=== PATIENT | female | born 1945 | race Caucasian/White ===

== ENCOUNTER → 2017-09-24 14:45 | Outpatient (POV) | payer OTHER, SELFPAY | PROVIDERS: Visit Provider Dermatology | DX: Z00.00 Encounter for general adult medical examination without abnormal findings (principal) ==

== ENCOUNTER → 2020-12-21 10:23 | Outpatient (CLI) | payer MEDICARE, SELFPAY ==
--- NOTE | 2020-12-21 10:26 | XR_ITS ---
PROCEDURE: XR DEXA AXIAL SKELETON CLINICAL HISTORY: OSTEOPOROSIS SCREENING COMPARISON: No exams were available for comparison FINDINGS: The right hip BMD is 0.690 grams/centimeter square with a T-score of -2.1. The left hip BMD is 0.653 grams/centimeter square with a T-score of -2.4. The lumbar spine BMD is 0.741 grams/centimeter square with a T-score of -2.8. IMPRESSION: This patient is considered osteoporotic according to the World Health Organization criteria. Fracture risk is high. Treatment is advised. Based on these results a follow-up exam is recommended in 2 year. Dictated by: Sarah Sr 12/21/2020 16:54 Sarah Sr in [place] 12/21/2020 16:54
== END ==
PROVIDERS: PCP Family Medicine; Visit Provider Family Medicine
DX: Z13.820 Encounter for screening for osteoporosis (principal)
CPT/HCPCS: 77080

== ENCOUNTER 2021-02-04 10:15 | Outpatient (CLI) | payer MEDICARE, SELFPAY ==
[2021-02-04 10:45] VITALS: BP 122/70; PULSE 70; RESP 20; TEMP 36.8; O2SAT 95
== END 2021-02-04 10:50 | disposition home or self-care (01) ==
LOC: INF 10:17
PROVIDERS: Visit Provider Family Medicine
DX: M81.0 Age-related osteoporosis without current pathological fracture (principal)
CPT/HCPCS: 96372; J0897

== ENCOUNTER 2021-08-08 10:35 | Outpatient (CLI) | payer MEDICARE, SELFPAY ==
[2021-08-08 10:48] VITALS: BP 132/67; PULSE 65; RESP 16; TEMP 36.4; O2SAT 98
== END 2021-08-08 10:55 | disposition home or self-care (01) ==
LOC: INF 10:37
PROVIDERS: PCP Family Medicine; Visit Provider Family Medicine
DX: M81.0 Age-related osteoporosis without current pathological fracture (principal)
CPT/HCPCS: 96372; J0897

== ENCOUNTER → 2022-01-14 10:00 | Outpatient (POV) | payer MEDICARE, SELFPAY | PROVIDERS: Visit Provider Dermatology | DX: Z00.00 Encounter for general adult medical examination without abnormal findings (principal) ==

== ENCOUNTER 2022-02-11 10:16 | Outpatient (CLI) | payer MEDICARE, SELFPAY ==
[2022-02-11 10:28] VITALS: BP 123/73; PULSE 62; RESP 18; TEMP 36.4; O2SAT 99
== END 2022-02-11 10:45 | disposition home or self-care (01) ==
LOC: INF 10:17
PROVIDERS: PCP Family Medicine; Visit Provider Family Medicine
DX: M81.0 Age-related osteoporosis without current pathological fracture (principal); E78.2 Mixed hyperlipidemia
CPT/HCPCS: 96372; J0897

== ENCOUNTER 2022-08-19 10:18 | Outpatient (CLI) | payer MEDICARE, SELFPAY ==
[2022-08-19 10:39] VITALS: BP 133/71; PULSE 68; RESP 18; O2SAT 97
== END 2022-08-19 10:39 | disposition home or self-care (01) ==
LOC: INF 10:20
PROVIDERS: PCP Family Medicine; Visit Provider Family Medicine
DX: M81.0 Age-related osteoporosis without current pathological fracture (principal); E78.2 Mixed hyperlipidemia
CPT/HCPCS: 96372; J0897

== ENCOUNTER 2023-02-17 10:29 | Outpatient (CLI) | payer MEDICARE, SELFPAY ==
[2023-02-17 10:50] VITALS: BP 131/74; PULSE 67; RESP 16; TEMP 36.4; O2SAT 97
== END 2023-02-17 11:05 | disposition home or self-care (01) ==
PROVIDERS: PCP Family Medicine; Visit Provider Family Medicine
DX: M81.0 Age-related osteoporosis without current pathological fracture (principal); E78.2 Mixed hyperlipidemia
CPT/HCPCS: 96372; J0897

== ENCOUNTER 2023-08-21 10:08 | Outpatient (CLI) | payer MEDICARE, SELFPAY ==
[2023-08-21 10:20] VITALS: BP 135/75; PULSE 84; RESP 18; TEMP 36.8; O2SAT 97
== END 2023-08-21 10:24 | disposition home or self-care (01) ==
LOC: INF 10:09
PROVIDERS: PCP Family Medicine; Visit Provider Family Medicine
DX: M81.0 Age-related osteoporosis without current pathological fracture (principal); E78.2 Mixed hyperlipidemia
CPT/HCPCS: 96372; J0897

== ENCOUNTER 2024-02-22 10:14 | Outpatient (CLI) | payer MEDICARE, SELFPAY ==
[2024-02-22 10:24] VITALS: BP 144/68; PULSE 72; RESP 18; TEMP 36.8; O2SAT 98
[2024-02-22] MEDS: DENOSUMAB 60 MG/ML SYRINGE SQ (10:27)
== END 2024-02-22 10:27 | disposition home or self-care (01) ==
LOC: INF 10:15
PROVIDERS: PCP Family Medicine; Visit Provider Family Medicine
DX: M81.0 Age-related osteoporosis without current pathological fracture (principal); Z79.620 Long term (current) use of immunosuppressive biologic
CPT/HCPCS: 96372; 96374; J0897

== ENCOUNTER 2024-02-29 09:01 | Outpatient (CLI) | payer MEDICARE, SELFPAY ==
--- NOTE | 2024-02-29 09:06 | XR_ITS ---
FINAL REPORT CLINICAL HISTORY: OSTEOPOROSIS COMPARISON: None FINDINGS: Using L1-4, the bone mineral density of the spine is 0.844 g/cm2, corresponding to T-score of -1.8 which is consistent with low bone density. Using the left hip, the bone mineral density of the femoral neck is 0.715 g/cm2, corresponding to a T-score of -1.9 which is consistent with low bone density. Using the right hip, the bone mineral density of the femoral neck is 0.677 g/cm2, corresponding to a T-score of -1.5 which is consistent with low bone density. FRAX not reported because the patient is being treated for osteoporosis. NOTE: T-score: Standard deviation compared with peak bone mass of young adult mean. *Following the recommendations of the International Society of Bone densitometry, classification of hip BMD is based on the lower of two T-scores; total hip or femoral neck. IMPRESSION: Diminished bone mineral density consistent with low bone density. Reviewed, Interpreted and Dictated by Ltuher Martinez III, MD Transcribed by Lore Granados Authenticated and [facility] [place] [place]
== END 2024-02-29 23:59 | disposition home or self-care (01) ==
LOC: RAD 09:01
PROVIDERS: PCP Family Medicine; Visit Provider Family Medicine
DX: M81.0 Age-related osteoporosis without current pathological fracture (principal)
CPT/HCPCS: 77080

== ENCOUNTER 2024-08-23 08:27 | Outpatient (CLI) | payer MEDICARE, SELFPAY ==
[2024-08-23 08:37] VITALS: BP 116/62; PULSE 82; RESP 18; TEMP 36.6; O2SAT 96; BMI 24.2
[2024-08-23] MEDS: DENOSUMAB 60 MG/ML SYRINGE SUBCUT (08:37)
[2024-08-23 08:45] VITALS: BP 116/62; PULSE 82; RESP 18; TEMP 36.6; O2SAT 96
== END 2024-08-23 08:45 | disposition home or self-care (01) ==
LOC: INF 08:27
PROVIDERS: PCP Family Medicine; Visit Provider Family Medicine
DX: M81.0 Age-related osteoporosis without current pathological fracture (principal)
CPT/HCPCS: 96372; J0897

== ENCOUNTER 2024-12-22 09:03 | Day surgery (SDC) | payer MEDICARE, SELFPAY ==
--- NOTE | 2024-12-20 09:16 | SUR.PREOP ---
0915:VAL on with call back number.
[2024-12-21 08:42] VITALS: BMI 24.6
[2024-12-22 09:25] VITALS: BP 182/74; PULSE 89; RESP 16; TEMP 36.6; O2SAT 96
--- NOTE | 2024-12-22 09:56 | P.PNANES_ITS ---
[facility] Disclaimer: The information contained in this section may have been updated after the patient was seen, as this information can be updated by other users. Medical History Closed left arm fracture Closed left ankle fracture Surgical History Hx laparoscopic cholecystectomy H/O total hysterectomy Family History Other Family history of hyperlipidemia Family history of hypertension Social History (Updated 12/21/24 @ 08:40 by Jeana Donovan RN) Smoking Status: Never smoker alcohol intake: never substance use type: denies use current occupational status: retired Travel in the last 8 weeks: None household members: none housing: house caffeine: Yes [facility] Anesthesia Checklist Patient Identification Patient Identification: Verbal (Name & ) Structural Data Admitted From: Home Planned Operative Procedure/s: colonoscopy Consent for Planned Operative Procedure(s) Verified: Yes NPO Status Verified Time NPO: 00:00 Airway Assessment Mallampati Score:: Class II C-Spine Mobility Assessed: Yes TMJ Mobility Assessed: Yes Dentition: Good Dentition Neurological Assessment Level of Consciousness: Awake, Alert and Appropriate Anesthesia Plan Anesthesia Risk discussed: Yes Anesthesia Plan: Verified ASA Class: II Anesthesia Type: MAC
--- NOTE | 2024-12-22 10:56 | P.HP_ITS ---
History of Present Illness *Admission Date: 12/22/24 *Reason for visit:: Hemoccult positive/soreness in lower abdomen *History of present illness: Mrs. Higginbotham is a 79-year-old female who is here for diagnostic colonoscopy. She has had some soreness in the lower abdomen and was recently found to be Hemoccult positive. Her last colonoscopy was more than 20 years ago.. The examination is deemed medically necessary for diagnostic colonoscopy. The patient has been seen, interviewed and examined prior to the procedure by both myself and the anesthesia provider. [facility] Disclaimer: The information contained in this section may have been updated after the patient was seen, as this information can be updated by other users. Medical History (Updated 12/22/24 @ 11:09 by Obed Childers II, MD) Closed left arm fracture Closed left ankle fracture Surgical History Hx laparoscopic cholecystectomy H/O total hysterectomy Family History Other Family history of hyperlipidemia Family history of hypertension Social History (Updated 12/22/24 @ 09:57 by Manoj Flores CRNA) Smoking Status: Never smoker alcohol intake: never substance use type: denies use current occupational status: retired Travel in the last 8 weeks: None household members: none housing: house caffeine: Yes Have you lived/traveled outside [place] in past 30 days?: No Contact w/someone who lives/traveled outside US past 30 days?: No Exposure to someone with infectious disease in past 14 days?: No Do you have a fever (greater than 100.4 F or 38 C)?: No Have you tested positive for COVID-19: No Exposed to someone with COVID-19 in past 14 days?: No Do you have a sore throat?: No Do you have a cough?: No Do you have any weakness?: No Are you experiencing any nausea/vomitting?: No Do you have any diarrhea?: No Are you experiencing any unusual bleeding?: No Do you have any muscle aches/pain?: No Do you have any abdominal pain?: No Are you experiencing loss of taste or smell?: No Review of Systems Review of Systems Review of systems (narrative): Negative *Cardiovascular Comments: Negative *Gastrointestinal Comments: Negative *Genitourinary Comments: Negative *Musculoskeletal Comments: Negative *Neurologic Comments: Negative Meds Home Medications and Allergies Home Medications ?Medication ?Instructions ?Recorded ?Confirmed ?Type simvastatin 40 mg tablet 40 mg PO HS chl 02/04/21 12/21/24 History calcium 500 mg (as 1 each PO DAILY Supplement 02/11/22 12/21/24 History carbonate)-vitamin D3 15 mcg (600 unit) tablet fajxofov-ucry-jxap 8 mg-folic 400 1 each PO DAILY Supplement 02/11/22 12/21/24 History mcg-K 50 mcg-lutein 300 mcg tablet sodium sul 1.479 gram-potas ch See Rx Instructions PO PER PKG DIR 12/12/24 12/21/24 Rx 0.188 gram-magnes sul 0.225 gram colonscopy #24 tabs tablet (Sutab) polyethylene glycol 3350 17 gram 17 g PO DAILY 12/21/24 12/21/24 History oral powder packet (Miralax) New Prescriptions to Start Prescriptions: Allergies Allergy/AdvReac Type Severity Reaction Status Date / Time SULFA (SULFONAMIDE) Allergy Mild NA-NAUSEA/V Uncoded 09/08/17 14:59 OMITING Exam Data for Last 24 hours Vital signs and Labs for Last 24 Hours: Temp Pulse Resp BP Pulse Ox O2 Del Method 97.8 F 89 16 182/74 H 96 Room Air 12/22/24 09:25 12/22/24 09:25 12/22/24 09:25 12/22/24 09:25 12/22/24 09:25 12/22/24 09:25 I & O for Last 24 hours: Intake & Output 12/19/24 12/20/24 12/21/24 12/22/24 23:59 23:59 23:59 23:59 Weight 148 lb 0.011 oz *Routine HEENT Exam Head: Present normocephalic Eye: Present EOMI and PERRL ENT: Present mucous membranes moist *Routine Neck Exam Neck: Present supple *Routine Respiratory Exam Respiratory: Present CTA bilaterally *Routine Cardiovascular Exam Cardiovascular: Present RRR *Routine Abdominal Exam Abdominal: Present soft and normoactive bowel sounds; Absent tenderness *Routine Rectal Exam Rectal:: deferred *Routine Genitalia Exam Genitalia:: deferred *Routine Extremities Exam Extremities: Absent cyanosis, clubbing or edema *Routine Skin Exam Skin: Present warm; Absent rash *Routine Neurological Exam Neurological: Present alert and oriented X3 Assessment and Plan *Assessment and plan (1) Positive occult stool blood test: Status: Acute Category: Medical Code(s): R19.5 - Other fecal abnormalities (2) Bilateral lower abdominal discomfort: Status: Acute Category: Medical Code(s): R10.31 - Right lower quadrant pain; R10.32 - Left lower quadrant pain Plan A/P: 1. Hemoccult positive/soreness in lower abdomen is the preprocedural diagnosis. The patient will be anesthetized/sedated using MAC sedation. The patient has been seen and examined. Cardiac and lung assessment prior to the examination is stable. Proceed with planned diagnostic colonoscopy
[2024-12-22 11:06] VITALS: O2SAT 100
--- NOTE | 2024-12-22 11:09 | HMH.PROCNOTE ---
[facility] Procedure Note Date: 12/22/24 Time: 11:27 Procedure Note:: Colonoscopy Procedure Report: Colonoscopy with cold snare polypectomy Endoscopist: Obed Childers II, MD Referring physician: Sandra Sprague M.D. Date of Procedure: December 22, 2024 Equipment: Olympus 190 variable stiffness pediatric colonoscope Sedation: MAC sedation Indication: Mrs. Higginbotham is a 79-year-old female who is here for diagnostic colonoscopy. She recently has had soreness in the lower abdomen for the last 3 to 4 weeks. She did have Hemoccult testing with PCP and this was Hemoccult positive. She reports no melena, hematochezia or bright red blood per rectum. She reports no gassiness or bloating. She does report some mild chronic constipation and takes MiraLAX regularly which helps to control. She reports no weight loss or family history of colon cancer. Her last colonoscopy was more than 20 years ago. Procedure: Prior to the procedure, a history and physical exam was performed, and patient's medications and allergies were reviewed. The risks, benefits and alternatives of the sedation and procedure were discussed with the patient. All questions were answered and informed consent was obtained. The patient was brought to the procedure room. Patient identification and proposed procedure were verified by the physician and the nurse. The patient was placed in a left lateral decubitus position and the scope was passed under direct vision. Throughout the procedure, the patient's blood pressure, pulse, and oxygen saturations were monitored continuously. The colonoscopy was accomplished without difficulty. The patient tolerated the procedure well. Findings: On digital rectal examination there was normal rectal tone. There were no external hemorrhoids. The colonoscope was introduced through the anal canal to the rectum and advanced to the cecum. The ileocecal valve and appendiceal orifice were identified. The scope was advanced a short distance into the ileum which appeared grossly normal. The scope was then withdrawn into the colon. There were 2 polyps (cecum x 1 (13 mm sessile polyp with mucus cap?probable serrated adenoma) and ascending x 1 (3 mm)). Both of these were removed via cold snare polypectomy. The cecum, ascending, transverse, descending, sigmoid and rectum were grossly normal. There were no mucosal abnormalities identified. Upon retroflexion within the rectum there were grade 2-3 internal hemorrhoids with some prolapse. The preparation was excellent throughout with [place] Preparation Score of 9. The cecal time was 12 minutes. Impression: 1. Cecal polyp 13 mm with mucus cap (probable serrated adenoma) 2. Diminutive 3 mm ascending colon polyp 3. Grade 2-3 internal hemorrhoids Plan: I will discuss the findings with the patient and family. I will follow-up the polyp histology. Based upon her age, I am not convinced that she will require any further preventive/surveillance colonoscopy. I would recommend that she continue the MiraLAX routinely with the addition of Citrucel. We will discuss additional dietary measures to follow.
[2024-12-22 11:29] VITALS: BP 100/55; PULSE 72; RESP 16; TEMP 36.2; O2SAT 96
[2024-12-22 11:39] VITALS: BP 104/57; PULSE 72; RESP 18; O2SAT 95
[2024-12-22 11:49] VITALS: BP 111/68; PULSE 76; RESP 16; O2SAT 97
[2024-12-22 11:59] VITALS: BP 132/72; PULSE 80; RESP 16; O2SAT 99
== END 2024-12-22 12:03 | disposition home or self-care (01) ==
PROVIDERS: PCP Family Medicine; Visit Provider Internal Medicine Gastroenterology
PROC: 0DJD8ZZ Inspection of Lower Intestinal Tract, Via Natural or Artificial Opening Endoscopic (ICD-10-PCS; CPT 45378; principal; 2024-12-22 11:00)
DX: K63.5 Polyp of colon (principal); K64.9 Unspecified hemorrhoids; R19.5 Other fecal abnormalities; R10.31 Right lower quadrant pain; R10.32 Left lower quadrant pain
CPT/HCPCS: 45385

== ENCOUNTER 2025-02-08 11:33 | Outpatient (CLI) | payer MEDICARE, SELFPAY ==
--- NOTE | 2025-02-08 11:40 | XR_ITS ---
FINAL REPORT CLINICAL HISTORY: ABD. PAIN, history of hysterectomy and collin COMPARISON: None FINDINGS: A single view of the abdomen was obtained. There is a normal bowel gas pattern. There are no abnormally dilated loops of small bowel. Lower left pelvic calcifications compatible with phleboliths. Patient is status post cholecystectomy. IMPRESSION: Unremarkable exam. Reviewed, Interpreted and Dictated by Popeye Albright MD Transcribed by Fannie Little Authenticated and [facility]
== END 2025-02-08 23:59 | disposition home or self-care (01) ==
LOC: RAD 11:35
PROVIDERS: PCP Family Medicine; Visit Provider Nurse Practitioner
DX: R10.9 Unspecified abdominal pain (principal); Z90.49 Acquired absence of other specified parts of digestive tract; Z90.710 Acquired absence of both cervix and uterus
CPT/HCPCS: 74018

== ENCOUNTER 2025-02-11 16:45 | Emergency (ER) | payer MEDICARE, SELFPAY ==
[2025-02-11 16:47] VITALS: BP 158/72; PULSE 86; RESP 16; TEMP 36.3; O2SAT 98; BMI 24.4
[2025-02-11 17:00] VITALS: BP 178/76; PULSE 70; O2SAT 95
--- NOTE | 2025-02-11 17:12 | CT_ITS ---
PROCEDURE INFORMATION: Exam: CT Abdomen And Pelvis With Contrast Exam date and time: 02/11/2025 5:55 PM Age: 79 years old Clinical indication: Abdominal pain; Additional info: Abd pain TECHNIQUE: Imaging protocol: Computed tomography of the abdomen and pelvis with contrast. Radiation optimization: All CT scans at this facility use at least one of these dose optimization techniques: automated exposure control; mA and/or kV adjustment per patient size (includes targeted exams where dose is matched to clinical indication); or iterative reconstruction. Contrast material: ISOVUE; Contrast volume: 75 ml; Contrast route: IV; COMPARISON: CR XR KUB 02/08/2025 11:42 AM FINDINGS: Diaphragm: Moderate-sized hiatal hernia with partially intrathoracic stomach. Liver: Small benign hepatic hemangioma in hepatic segment 3 measuring 1.5 cm. A 2.5 cm hemangioma also noted in hepatic segment 6. No suspicious liver lesions. Gallbladder and biliary ducts: Status post cholecystectomy. Pancreas: Unremarkable. Spleen: Unremarkable. Adrenal glands: Unremarkable. Kidneys and ureters: Normal symmetric renal nephrograms. No renal or ureteral stones. No hydronephrosis. Bilateral simple renal cysts incidentally noted. Stomach and bowel: See Diaphragm finding. Appendix: Appendix is visualized and is normal. Intraperitoneal space: No free fluid. No pneumoperitoneum. Vasculature: Unremarkable. Lymph nodes: Unremarkable. Urinary bladder: Unremarkable. Reproductive: Status post hysterectomy. Bones/joints: No evidence of acute osseous abnormality. Soft tissues: Unremarkable. IMPRESSION: 1. No evidence of acute intra-abdominal pathology. 2. Moderate-sized hiatal hernia with partially intrathoracic stomach. COMMENTS: Consistent with the [place] [employer]'s Incidental Findings Committee white paper (J Am Markell Radiol 2018): Any incidental renal lesion less than 1 cm or classified as too small to characterize, or any incidental cystic renal lesion characterized as simple-appearing, is likely benign. No follow-up imaging is recommended for these lesions per consensus recommendations based on imaging criteria.
[2025-02-11 17:16] VITALS: BP 159/79; PULSE 65; RESP 18; O2SAT 97
[2025-02-11 17:18] LABS: Basophils # 0.1 K/mm3 (0-0.2); Basophils % 0.7 % (0.1-2.0); Eosinophils # 0.1 Kmm3 (0.0-0.4); Hematocrit 40.5 % (37.0-47.0); Hemoglobin 13.6 g/dL (12.2-16.2); Immature Granulocytes # 0.02 10^3uL; Immature Granulocytes % 0.3 %; Lymphocytes # 1.9 K/mm3 (0.7-4.5); Lymphocytes % 26.3 % (10-50); Mean Corpuscular HGB Conc 33.6 g/dL (31.8-35.4); Mean Corpuscular Hemoglobin 29.8 pg (27.0-31.2); Mean Corpuscular Volume 88.8 fl (81-99); Mean Platelet Volume 11.4 fl (7.4-10.4); Monocytes # 0.7 K/mm3 (0.1-1.0); Monocytes % 9.7 % (1.7-9.3); Neutrophils # 4.5 K/mm3 (1.8-7.8); Nucleated Red Blood Cells # 0 10^3/uL; Nucleated Red Blood Cells % 0 %; Platelet Count 184 K/mm3 (142-424); Red Blood Count 4.56 M/mm3 (4.20-5.40); Red Cell Distribution Width 12.6 % (11.5-17.5); Red Cell Distribution Width-SD 41.1 fL; White Blood Count 7.2 K/mm3 (4.8-10.8)
--- NOTE | 2025-02-11 17:28 | ED_ITS ---
Discharge Plan Disposition Patient Disposition: Home, Self-Care Condition: Good Prescriptions Prescriptions: New ondansetron 4 mg tablet,disintegrating 4 mg PO DAILY Qty: 30 0RF dicyclomine 10 mg capsule 10 mg PO BID Qty: 14 0RF No Action Sutab 1.479-0.188- 0.225 gram tablet See Rx Instructions PO PER PKG DIR Qty: 24 0RF Rx Instructions: at 6pm the night before procedure, swallow 1 tablet every 1-2 minutes. you should finish 12 tablets and entire 16 oz of water within 20 minutes. IMPORTANT: If you experience pre-related symptoms ( nausea, bloating or cramping) pause and slow the rate of drinking additional water until symptoms diminish. approximately one hour after the last tablet, drink 16 oz of water over 30 mins. then repeat in 30 mins. pydhgsre-jij-baes-FA-vit K-lut 1 EACH tablet 1 each PO DAILY calcium carbonate-vitamin D3 1 EACH tablet 1 each PO DAILY simvastatin 40 MG tablet 40 mg PO HS polyethylene glycol 3350 [Miralax] 17 gram Powder In Packet 17 g PO DAILY Referrals Follow up/Referrals: Wilma Sprague MD [Primary Care Provider] - See instructions Activity Restrictions/Add. Instructions Additional Instructions/Restrictions: Today your evaluated in the emergency department. Your lab workup was overall unremarkable. Your CT did not show any acute findings. Please take the Bentyl as directed for your stomach issues. Please take the Zofran as directed for nausea. Please call Thursday morning and make a follow-up appointment with your spray unit feeder. Return to the ED for any worsening of condition. Clinical Impressions Clinical Impression: Nausea, Abdominal pain, non-surgical Instructions Patient Instructions: DI for Nausea -- Adult Print Language Print Language: Egyptian Discharge ED Provider: Ko Sanders General Adult HPI <Makenzie Joseph APRN - Last Filed: 02/11/25 20:42> General Chief complaint: Nausea/Vomiting/Diarrhea Stated complaint: Diahrrea; Lower Abdominal Pain Time Seen by Provider: 02/11/25 16:57 Mode of Arrival: Ambulatory Source of Information: Patient Description of Symptoms (Recalled from ER Triage Doc. by RN): Patient presents with nausea, diarrhea x4 days, as well as stomach discomfort x 2 months. Patient presents with dark stools x2 days. History of Present Illness HPI narrative: patient is a 79-year-old female PMHx history of abdominal pain, recent colonoscopy with benign polyps who presents to the ED for lower abdominal pain, nausea, and diarrhea. Patient states she has had lower abdominal pain since November, describes her stomach as feeling sore . Related Data Home Medications ?Medication ?Instructions ?Recorded ?Confirmed simvastatin 40 mg tablet 40 mg PO HS chl 02/04/21 12/21/24 calcium 500 mg (as 1 each PO DAILY Supplement 02/11/22 12/21/24 carbonate)-vitamin D3 15 mcg (600 unit) tablet dvflwcsd-quwy-suao 8 mg-folic 400 1 each PO DAILY Supplement 02/11/22 12/21/24 mcg-K 50 mcg-lutein 300 mcg tablet polyethylene glycol 3350 17 gram 17 g PO DAILY 12/21/24 12/21/24 oral powder packet (Miralax) Previous Rx's ?Medication ?Instructions ?Recorded sodium sul 1.479 gram-potas ch See Rx Instructions PO PER PKG DIR 12/12/24 0.188 gram-magnes sul 0.225 gram colonscopy #24 tabs tablet (Sutab) dicyclomine 10 mg capsule 10 mg PO BID #14 caps 02/11/25 ondansetron 4 mg disintegrating 4 mg PO DAILY #30 tabs 02/11/25 tablet Allergies Allergy/AdvReac Type Severity Reaction Status Date / Time SULFA (SULFONAMIDE) Allergy Mild NA-NAUSEA/V Uncoded 09/08/17 14:59 OMITING PFSH <Makenzie Joseph APRN - Last Filed: 02/11/25 20:42> PFSH Disclaimer: The information contained in this section may have been updated after the patient was seen, as this information can be updated by other users. Medical History (Updated 02/11/25 @ 19:12 by Makenzie Joseph APRN) Closed left arm fracture Closed left ankle fracture Surgical History Hx laparoscopic cholecystectomy H/O total hysterectomy Family History Other Family history of hyperlipidemia Family history of hypertension Social History (Updated 12/22/24 @ 09:57 by Manoj Flores CRNA) Smoking Status: Never smoker alcohol intake: never substance use type: denies use current occupational status: retired Travel in the last 8 weeks?: None household members: none housing: house caffeine: Yes Have you lived/traveled outside US in past 30 days?: No Contact w/someone who lives/traveled outside US past 30 days?: No Exposure to someone with infectious disease in past 14 days?: No Do you have a fever (greater than 100.4 F or 38 C)?: No Have you tested positive for COVID-19?: No Exposed to someone with COVID-19 in past 14 days?: No Do you have a sore throat?: No Do you have a cough?: No Do you have any weakness?: No Do you have any diarrhea?: Yes Are you experiencing any unusual bleeding?: No Do you have any muscle aches/pain?: Yes Do you have any abdominal pain?: Yes Are you experiencing loss of taste or smell?: No <Makenzie Joseph APRN - Last Filed: 02/11/25 20:42> ROS Obtained: Yes Systems reviewed as appropriate & no additional complaints except as documented Physical Exam <Makenzie Joseph APRN - Last Filed: 02/11/25 20:42> General General appearance: alert and in no apparent distress Head Head exam: atraumatic and normocephalic Eye Eye exam: Present normal appearance and PERRL ENT ENT exam: Present normal exam Neck Neck exam: Present normal inspection Chest Chest inspection: Present normal inspection and symmetric chest wall rise; Absent tenderness Respiratory Respiratory exam: Present normal lung sounds bilaterally Cardiovascular Cardiovascular exam: Present regular rate Abdominal Exam Abdominal exam: Present soft, tenderness (mild lower abd tenderness ) and normal bowel sounds Extremities Exam Extremities exam: Present normal inspection and full ROM Back Exam Back exam: Present normal inspection and full ROM Neurological Exam Neurological exam: Present alert and oriented X3 Psychiatric Psychiatric exam: Present normal affect and normal mood Skin Skin exam: Present warm and dry Medical Decision Making <Makenzie Joseph APRN - Last Filed: 02/11/25 20:42> Medical Records Screening: Per USPSTF and CDC recommendations, given the prevalence of disease in our region, it is our hospital?s policy to screen for HIV and viral Hepatitis for all patients aged 18 and over and those with ongoing risk factors. Nabil Inquiry Pt receiving controlled substance: No Vital Signs: 02/11/25 16:47 02/11/25 17:00 02/11/25 17:16 Temperature 97.3 F L Temperature Source Temporal Artery Scan Pulse Rate 70 65 Pulse Rate [Right] 86 Respiratory Rate 16 18 Blood Pressure 178/76 H 159/79 H Blood Pressure [Right Arm] 158/72 H Blood Pressure Mean 105 Blood Pressure Mean [Right Arm] 100 Blood Pressure Source Blood Pressure Position 02 Sat by Pulse Oximetry 98 95 97 Oxygen Delivery Method Room Air 02/11/25 17:30 02/11/25 18:30 02/11/25 19:48 Temperature 98 F Temperature Source Oral Pulse Rate 65 62 61 Pulse Rate [Right] Respiratory Rate 18 11 L 18 Blood Pressure 154/72 H 153/72 H 160/71 H Blood Pressure [Right Arm] Blood Pressure Mean 95 Blood Pressure Mean [Right Arm] Blood Pressure Source Automatic Cuff Blood Pressure Position Sitting 02 Sat by Pulse Oximetry 97 97 Oxygen Delivery Method Room Air Lab Data Lab Results 02/11/25 17:10: WBC 7.2, RBC 4.56, Hgb 13.6, Hct 40.5, MCV 88.8, MCH 29.8, MCHC 33.6, RDW 12.6, Plt Count 184, MPV 11.4 H, Neut % (Auto) 62.0, Lymph % (Auto) 26.3, [place] % (Auto) 9.7 H, Eos % (Auto) 1.0, Baso % (Auto) 0.7, Neut # (Auto) 4.5, Lymph # (Auto) 1.9, [place] # (Auto) 0.7, Eos # (Auto) 0.1, Baso # (Auto) 0.1, Sodium 134 L, Potassium 3.9, Chloride 105, Carbon Dioxide 24, Anion Gap 8.9, BUN 10, Creatinine 0.60, Estimated Creat Clear 50, Estimated GFR 97, Est GFR ( Amer) 117, Glucose 105 H, Calcium 9.1, Total Bilirubin 0.5, AST 39 H, ALT 21, Alkaline Phosphatase 47, Total Protein 7.0, Albumin 4.3, Globulin 2.7, Albumin/Globulin Ratio 1.6, Lipase 90 02/11/25 18:55: Urine Color Yellow, Urine Appearance Clear, Urine pH 6.5, Ur Specific [place] <= 1.005, Urine Protein Negative, Urine Glucose (UA) Negative, Urine Ketones 1+, Urine Blood Trace-i, Urine Nitrate Negative, Urine Bilirubin Negative, Urine Urobilinogen 0.2, Ur Leukocyte Esterase 1+ A, Urine RBC Occasional, Urine WBC 3-5, Ur Squamous Epith Cells None, Urine Bacteria Trace 02/11/25 17:10 02/11/25 17:10 Orders (Tests/Meds): ED MEDICATIONS Discontinued Medications Generic Name Dose Route Start Last Admin Trade Name Freq PRN Reason Stop Dose Admin Dicyclomine HCl 10 mg 02/11/25 17:13 02/11/25 17:45 Dicyclomine 20 Mg/2ml Vial IM 02/11/25 17:14 10 mg ONCE ONE Administration Sodium Chloride 500 mls @ 999 mls/hr 02/11/25 17:13 02/11/25 17:44 Sod Chlor 0.9% 1000ml Bag IV 02/11/25 17:43 999 mls/hr .Q31M ONE Administration Iopamidol 75 ml 02/11/25 17:54 02/11/25 17:55 Iopamidol-370 (76%);100ml Bottle IV 02/11/25 17:55 75 ml ONCE ONE Administration Sodium Chloride 10 ml 02/11/25 17:54 02/11/25 17:55 Sodium Chloride 0.9% 10ml Syr (Rad Only) IV 03/13/25 17:53 10 ml NEEDED PRN Administration Maintain IV Site ORDERS Category Date Time Status CT abdomen pelvis w con Stat Cat Scan 02/11/25 17:12 Completed CBC w/Auto Diff [Complete Blood Count Auto Diff] Stat Lab 02/11/25 17:10 Completed CMP [Comprehensive Metabolic Panel] Stat Lab 02/11/25 17:10 Completed Lipase Stat Lab 02/11/25 17:10 Completed Urinalysis and Microscopic Stat Lab 02/11/25 18:55 Completed Urine Culture Stat Micro 02/11/25 18:55 Received Medical Decision Narrative: In summary, patient is a 79-year-old female PMHx history of abdominal pain, recent colonoscopy with benign polyps who presents to the ED for lower abdominal pain, nausea, and diarrhea. Patient states she has had lower abdominal pain since November, describes her stomach as feeling sore . She states over the past few days she has had nausea and diarrhea. She is unable to keep food down at this time. Denies any known sick contacts. Denies taking any medication prior to arrival. States she had a recent x-ray of her abdomen but is unsure of the results. Denies fever, chills, body aches, headache, visual disturbances, chest pain, shortness of breath, back pain, dysuria. Upon initial evaluation patient is alert, oriented and cooperative. She is hemodynamically stable. Her physical exam is remarkable for lower abdominal tenderness that is mild in nature. Her abdomen is soft. Differential diagnosis include infectious process, electrolyte imbalance, gastroenteritis, mass, among others. Discussed with patient we will proceed with IV fluids and Bentyl. Will obtain CT imaging. Records reviewed, on 02/08/2025 patient had a KUB x-ray that was unremarkable for any acute findings. CBC unremarkable for any leukocytosis, stable H&H. CMP overall unremarkable for any actionable abnormalities. Lipase 90. CT abdomen pelvis final read unremarkable for any acute findings. Urinalysis unremarkable for any nitrite, 1+ leuk esterase. Will send for culture. Upon reassessment, patient states her condition has improved. She is able to tolerate PO while in the ED. She remains hemodynamically stable while in the ED. I advised her that her workup was overall unremarkable, we will give her prescription for Zofran and Bentyl for home. Advised her to call spray unit feeder Thursday to schedule follow-up. We discussed return precautions to the ED. Patient verbalized understanding. <Ko Sanders MD - Last Filed: 02/12/25 23:29> Vital Signs: 02/11/25 16:47 02/11/25 17:00 02/11/25 17:16 Temperature 97.3 F L Temperature Source Temporal Artery Scan Pulse Rate 70 65 Pulse Rate [Right] 86 Respiratory Rate 16 18 Blood Pressure 178/76 H 159/79 H Blood Pressure [Right Arm] 158/72 H Blood Pressure Mean 105 Blood Pressure Mean [Right Arm] 100 Blood Pressure Source Blood Pressure Position 02 Sat by Pulse Oximetry 98 95 97 Oxygen Delivery Method Room Air 02/11/25 17:30 02/11/25 18:30 02/11/25 19:48 Temperature 98 F Temperature Source Oral Pulse Rate 65 62 61 Pulse Rate [Right] Respiratory Rate 18 11 L 18 Blood Pressure 154/72 H 153/72 H 160/71 H Blood Pressure [Right Arm] Blood Pressure Mean 95 Blood Pressure Mean [Right Arm] Blood Pressure Source Automatic Cuff Blood Pressure Position Sitting 02 Sat by Pulse Oximetry 97 97 Oxygen Delivery Method Room Air Lab Data Lab Results 02/11/25 17:10: WBC 7.2, RBC 4.56, Hgb 13.6, Hct 40.5, MCV 88.8, MCH 29.8, MCHC 33.6, RDW 12.6, Plt Count 184, MPV 11.4 H, Neut % (Auto) 62.0, Lymph % (Auto) 26.3, [place] % (Auto) 9.7 H, Eos % (Auto) 1.0, Baso % (Auto) 0.7, Neut # (Auto) 4.5, Lymph # (Auto) 1.9, [place] # (Auto) 0.7, Eos # (Auto) 0.1, Baso # (Auto) 0.1, Sodium 134 L, Potassium 3.9, Chloride 105, Carbon Dioxide 24, Anion Gap 8.9, BUN 10, Creatinine 0.60, Estimated Creat Clear 50, Estimated GFR 97, Est GFR ( Amer) 117, Glucose 105 H, Calcium 9.1, Total Bilirubin 0.5, AST 39 H, ALT 21, Alkaline Phosphatase 47, Total Protein 7.0, Albumin 4.3, Globulin 2.7, Albumin/Globulin Ratio 1.6, Lipase 90 02/11/25 18:55: Urine Color Yellow, Urine Appearance Clear, Urine pH 6.5, Ur Specific [place] <= 1.005, Urine Protein Negative, Urine Glucose (UA) Negative, Urine Ketones 1+, Urine Blood Trace-i, Urine Nitrate Negative, Urine Bilirubin Negative, Urine Urobilinogen 0.2, Ur Leukocyte Esterase 1+ A, Urine RBC Occasional, Urine WBC 3-5, Ur Squamous Epith Cells None, Urine Bacteria Trace Orders (Tests/Meds): ED MEDICATIONS Discontinued Medications Generic Name Dose Route Start Last Admin Trade Name Freq PRN Reason Stop Dose Admin Dicyclomine HCl 10 mg 02/11/25 17:13 02/11/25 17:45 Dicyclomine 20 Mg/2ml Vial IM 02/11/25 17:14 10 mg ONCE ONE Administration Sodium Chloride 500 mls @ 999 mls/hr 02/11/25 17:13 02/11/25 17:44 Sod Chlor 0.9% 1000ml Bag IV 02/11/25 17:43 999 mls/hr .Q31M ONE Administration Iopamidol 75 ml 02/11/25 17:54 02/11/25 17:55 Iopamidol-370 (76%);100ml Bottle IV 02/11/25 17:55 75 ml ONCE ONE Administration Sodium Chloride 10 ml 02/11/25 17:54 02/11/25 17:55 Sodium Chloride 0.9% 10ml Syr (Rad Only) IV 03/13/25 17:53 10 ml NEEDED PRN Administration Maintain IV Site ORDERS Category Date Time Status CT abdomen pelvis w con Stat Cat Scan 02/11/25 17:12 Completed CBC w/Auto Diff [Complete Blood Count Auto Diff] Stat Lab 02/11/25 17:10 Completed CMP [Comprehensive Metabolic Panel] Stat Lab 02/11/25 17:10 Completed Lipase Stat Lab 02/11/25 17:10 Completed Urinalysis and Microscopic Stat Lab 02/11/25 18:55 Completed Urine Culture Stat Micro 02/11/25 18:55 Received Medical Decision Narrative: In summary, patient is a 79-year-old female PMHx history of abdominal pain, recent colonoscopy with benign polyps who presents to the ED for lower abdominal pain, nausea, and diarrhea. Patient states she has had lower abdominal pain since November, describes her stomach as feeling sore . She states over the past few days she has had nausea and diarrhea. She is unable to keep food down at this time. Denies any known sick contacts. Denies taking any medication prior to arrival. States she had a recent x-ray of her abdomen but is unsure of the results. Denies fever, chills, body aches, headache, visual disturbances, chest pain, shortness of breath, back pain, dysuria. Upon initial evaluation patient is alert, oriented and cooperative. She is hemodynamically stable. Her physical exam is remarkable for lower abdominal tenderness that is mild in nature. Her abdomen is soft. Differential diagnosis include infectious process, electrolyte imbalance, gastroenteritis, mass, among others. Discussed with patient we will proceed with IV fluids and Bentyl. Will obtain CT imaging. Records reviewed, on 02/08/2025 patient had a KUB x-ray that was unremarkable for any acute findings. CBC unremarkable for any leukocytosis, stable H&H. CMP overall unremarkable for any actionable abnormalities. Lipase 90. CT abdomen pelvis final read unremarkable for any acute findings. Urinalysis unremarkable for any nitrite, 1+ leuk esterase. Will send for culture. Upon reassessment, patient states her condition has improved. She is able to tolerate PO while in the ED. She remains hemodynamically stable while in the ED. I advised her that her workup was overall unremarkable, we will give her prescription for Zofran and Bentyl for home. Advised her to call spray unit feeder Thursday to schedule follow-up. We discussed return precautions to the ED. Patient verbalized understanding. I was consulted by the BRIGID, and we discussed the complexity of the problems being addressed.I approved the treatment and management plan for this patient?s care in the Emergency Department, thus performing a substantive portion of the medical decision making.Signed, Ko Sanders MD [facility] <Makenzie Joseph APRN - Last Filed: 02/11/25 20:42> Critical Care Time Critical Care Time: No
[2025-02-11 17:30] VITALS: BP 154/72; PULSE 65; RESP 18; O2SAT 97
[2025-02-11 17:41] LABS: Albumin Level 4.3 g/dl (3.5-5.0); Chloride 105 mmol/L (98-107); Potassium 3.9 mmoL/L (3.5-5.1); Sodium 134 mmol/L (136-145)
[2025-02-11 17:44] LABS: Alanine Aminotransferase 21 U/L (12-78); Albumin/Globulin Ratio 1.6 (1.1-1.8); Alkaline Phosphatase 47 U/L (38-126); Anion Gap 8.9 mEq/L (5-15); Aspartate Amino Transferase 39 U/L (14-36); Bilirubin,Total 0.5 mg/dl (0.2-1.3); Blood Urea Nitrogen 10 mg/dl (7-17); Calcium 9.1 mg/dl (8.4-10.2); Carbon Dioxide 24 mmol/L (22.0-30.0); Creatinine Clearance Estimated 50 mL/min (50-200); Estimated Glomerular Filt Rate 97 ml/min (>60); GFR (African American) 117 ML/MIN (>60); Globulin 2.7 g/dL (1.3-3.2); Glucose 105 mg/dl (74-100); Lipase 90 U/L (23-300)
[2025-02-11] MEDS: 0.9 % SODIUM CHLORIDE 1000ML 500 ML 999 ML IV (17:44)
[2025-02-11] MEDS: DICYCLOMINE 20 MG/2ML VIAL 10 MG IM (17:45)
[2025-02-11] MEDS: IOPAMIDOL-370 (76%);100ML BOTTLE 75 ML IV (17:55)
[2025-02-11] MEDS: SODIUM CHLORIDE 0.9% 10ML SYR (RAD ONLY) 10 ML IV (17:55)
[2025-02-11 18:30] VITALS: BP 153/72; PULSE 62; RESP 11; O2SAT 97
[2025-02-11 19:09] LABS: Microscopic, Urine URINE MICROSCOPIC (MICROSCOPIC)
[2025-02-11 19:10] LABS: Appearance,Urine CLEAR (Clear); Bilirubin,Urine Negative (Negative); Blood, Urine TRACE-I (Negative); Color,Urine YELLOW (Yellow); Glucose,Urine (UA) Negative (Negative); Ketones,Urine 1+ (Negative); Leukocyte Esterase,Urine 1+ (Negative); Nitrate,Urine Negative (Negative); PH,Urine 6.5 (5.0-8.5); Protein,Urine Negative (Negative); Specific Gravity, Urine <= 1.005 (1.005-1.030); Urobilinogen,Urine 0.2 EU/dl (0.2)
--- NOTE | 2025-02-11 19:31 | PC.NURSE ---
crackers and water given at this time for PO challenge.
[2025-02-11 19:48] VITALS: BP 160/71; PULSE 61; RESP 18; TEMP 36.6; O2SAT 98
--- NOTE | 2025-02-11 19:48 | PC.NURSE ---
IV discontinued. Catheter tip intact. Bleeding controlled.
[2025-02-11 20:08] LABS: RBC,Urine Occasional #/hpf (0-3)
[2025-02-11 20:09] LABS: Bacteria,Urine Trace /lpf
== END 2025-02-11 19:49 | disposition home or self-care (01) ==
PROVIDERS: Nurse Practitioner; Emergency Provider Emergency Medicine; PCP Family Medicine
DX: R10.30 Lower abdominal pain, unspecified (principal); R10.819 Abdominal tenderness, unspecified site; R11.0 Nausea; R19.7 Diarrhea, unspecified
CPT/HCPCS: 74177; 80053; 81001; 83690; 85025; 87086; 96372; 99284; J0500; J7030; Q9967

== ENCOUNTER 2025-02-15 11:36 | Outpatient (CLI) | payer MEDICARE, SELFPAY ==
[2025-02-15 11:42] LABS: Adenovirus F 40/41, stool Not Detected (NotDetected); Astrovirus Not Detected (NotDetected); Campylobacter Not Detected (NotDetected); Clostridium Difficile A/B, PCR Not Detected (NotDetected); Cryptosporidium Not Detected (NotDetected); Cyclospora Cayetanesis Not Detected (NotDetected); Entamoeba histolytica Not Detected (NotDetected); Enteroaggregative E coli Not Detected (NotDetected); Enteropathogenic E coli Not Detected (NotDetected); Enterotoxigenic E coli Not Detected (NotDetected); Giardia lamblia Not Detected (NotDetected); Norovirus Not Detected (NotDetected); Plesimonas Shigalloides, PCR Not Detected (NotDetected); Rotavirus A Not Detected (NotDetected); Salmonella, PCR Not Detected (NotDetected); Sapovirus Not Detected (NotDetected); Shiga-like toxin E coli Not Detected (NotDetected); Shigella Enterovasive E coli Not Detected (NotDetected); Vibrio Cholerae Not Detected (NotDetected); Vibrio, PCR Not Detected (NotDetected); Yersinia Entercolitica, PCR Not Detected (NotDetected)
[2025-02-15 20:54] LABS: Occult Blood,Stool Negative (Negative)
== END 2025-02-15 23:59 | disposition home or self-care (01) ==
LOC: LAB 11:36
PROVIDERS: PCP Family Medicine; Visit Provider Internal Medicine Gastroenterology
DX: R19.7 Diarrhea, unspecified (principal); R19.5 Other fecal abnormalities
CPT/HCPCS: 82272; 87506; G0328

== ENCOUNTER 2025-02-16 09:06 | Outpatient (CLI) | payer MEDICARE, SELFPAY ==
[2025-02-20 15:16] LABS: Calprotectin, Fecal 17 ug/g (0-120)
[2025-02-20 17:22] LABS: Pancreatic Elastase, Fecal 535 (>200)
== END 2025-02-16 23:59 | disposition home or self-care (01) ==
PROVIDERS: PCP Family Medicine; Visit Provider Internal Medicine Gastroenterology
DX: R19.7 Diarrhea, unspecified (principal)
CPT/HCPCS: 82656; 83993

== ENCOUNTER 2025-02-21 09:49 | Outpatient (CLI) | payer MEDICARE, SELFPAY ==
[2025-02-21 10:06] VITALS: BP 124/76; PULSE 71; RESP 14; TEMP 36.7; O2SAT 97
[2025-02-21] MEDS: DENOSUMAB 60 MG/ML SYRINGE SUBCUT (10:12)
== END 2025-02-21 10:24 | disposition home or self-care (01) ==
LOC: INF 09:51
PROVIDERS: PCP Family Medicine; Visit Provider Family Medicine
DX: M19.90 Unspecified osteoarthritis, unspecified site (principal)
CPT/HCPCS: 96372; J0897

== ENCOUNTER 2025-03-01 15:57 | Outpatient (CLI) | payer MEDICARE, SELFPAY ==
[2025-03-01 16:02] LABS: Adenovirus F 40/41, stool Not Detected (NotDetected); Astrovirus Not Detected (NotDetected); Campylobacter Not Detected (NotDetected); Clostridium Difficile A/B, PCR Not Detected (NotDetected); Cryptosporidium Not Detected (NotDetected); Cyclospora Cayetanesis Not Detected (NotDetected); Entamoeba histolytica Not Detected (NotDetected); Enteroaggregative E coli Not Detected (NotDetected); Enteropathogenic E coli Not Detected (NotDetected); Enterotoxigenic E coli Not Detected (NotDetected); Giardia lamblia Not Detected (NotDetected); Norovirus Not Detected (NotDetected); Plesimonas Shigalloides, PCR Not Detected (NotDetected); Rotavirus A Not Detected (NotDetected); Salmonella, PCR Not Detected (NotDetected); Sapovirus Not Detected (NotDetected); Shiga-like toxin E coli Not Detected (NotDetected); Shigella Enterovasive E coli Not Detected (NotDetected); Vibrio Cholerae Not Detected (NotDetected); Vibrio, PCR Not Detected (NotDetected); Yersinia Entercolitica, PCR Not Detected (NotDetected)
--- OUTSIDE RECORDS SUMMARY | 2025-03-01 16:03 | XMS_ITS ---
Author Organization Unknown Problems Date Problem Result OnSetDate Icd10 SnomedCode Severity 11/29/2024 00:00:00 Stomach pain K30 02/08/2025 00:00:00 Anxiety F41.9
--- OUTSIDE RECORDS SUMMARY | 2025-03-01 16:03 | XMS_ITS ---
Laboratory report Created on: February 22, 2025 JESSICA STEWART : 1945 Sex: Female Author Organization Unknown PROBLEMS Problems List Code Description RESULTS Laboratory Orders Date Order Code Test 2025-02-16 [id number] CALPROTECTIN, FE DANN 2025-02-16 [id number] PANCREATIC ELAST ASE, FECAL Laboratory Results Date LOINC Test Value Unit Reference Range Interpre tation 2025-02-16 24603-6 CALPROTECTIN, FECAL 17 UG/G 0-120 2025-02-16 20919-4 PANCREATIC ELASTASE, FECAL 535 UG ELAST./G >200
== END 2025-03-01 23:59 | disposition home or self-care (01) ==
LOC: LAB 15:59
PROVIDERS: PCP Family Medicine; Visit Provider Family Medicine
DX: R19.7 Diarrhea, unspecified (principal)
CPT/HCPCS: 87045; 87507

== ENCOUNTER 2025-04-27 11:49 | Outpatient (CLI) | payer MEDICARE, SELFPAY ==
--- OUTSIDE RECORDS SUMMARY | 2025-04-27 11:51 | XMS_ITS | Clinical Summary ---
Author Organization [facility] Address [address] [place] [address] Care Team Providers Care Thermite Bomb Loader Name Role Phone Silverio Sprague MD Primary Care Provider [phone] Allergies Active Allergy Reactions Criticality Noted Date Comments Sulfa Antibiotics Nausea And Vomiting Family History Medical History Relation Name Comments Breast cancer Neg Hx Colon cancer Neg Hx Endometrial cancer Neg Hx Ovarian cancer Neg Hx Social History Tobacco Use Types Packs/Day Years Used Date Smoking Tobacco: Never Assessed Abuse Screen Answer Date Recorded Unsafe at Home or Work/School Not on file Feels Threatened by Someone? Not on file 05/2023 Does Anyone Keep You from Co ntacting Others or Doint Things Outside the Home? Not on file 06/29/2023 Physical Sign of Abuse Present Not on file 1 Housing Stability Answer Date Recorded Current Living Arrangements Not on file 05/2023 Potentially Unsafe Housing Conditions Not on deisy e 06/29/2023 Family and Community Support Answer Boom e Recorded Help with Day-to-Day Activities Not on file 06/29/2023 Lonely or Isolated Not on file 06/29/2023 Employment Answer Date Recorded Do you want help finding or keeping work or a prem b? Not on file 06/29/2023 Disabilities Answer Date Recorded Concentrating, Remembering, or Making Decisions Difficulty Not on file 06/29/2023 Doing Errands Independently Difficulty Not on fi le 06/29/2023 Education Answer Date Recorded Help with school or training? Not on file Preferred Language Not on file 06/29/2023 Comments No Sex and Gender Information Value Date Recorded Sex Assigned at Not on file Legal Sex Female 12:31 PM EDT Gender Identity Not on file Sexual Orientation Not on file Plan of Treatment Health Maintenance Due Date Last Done Comments ANNUAL PHYSICAL 1945 DXA SCAN 1945 HEPATITIS C SCREENING 1945 Pneumococcal Vaccine 50+ (1 of 1 - PCV) 1997 TDAP/TD VACCINES (2 - Tdap) 11/22/2006 11/22/1996 RSV Vaccine - Adults (1 - 1- dose 75+ series) 2022 COVID-19 Vaccine (2023-2 5 season) 2024 06/16/2024, 2023, 06/25/2022, Additional history exists INFLUENZA VACCINE 06/21/2025 06/07/2024, , 07/04/2016 ZOSTER VACCINE Completed 11/24/2018, 10/2018, 08/02/2013 MAMMOGRAM Discontinued 07/19/2024, 05/23, 06/12/2022, Additional history exists Procedures Procedure Name Priority Date/Time Associated Diagnosis Comments MAMMO SCREENING DIGITAL TOMOSYNTHESIS BILATERAL W CAD Routine 07/19/2024 12:56 PM EDT Visit for screening mammogram from Last 3 Months or Most Recently Relevant to Health Maintenance Results * Mammo Screening Digital Tomosynthesis Bilateral With CAD (07/19/2024 12:56 PM EDT) Anatomical Region Laterality Modality Breast N/A Mammography 07/21/2024 3:18 PM EDT Impressions 07/21/2024 3:20 PM EDT Benign screening mammogram. RECOMMENDATION: Continue annual screening mammography. BI-RADS CATEGORY 2, BENIGN. CAD was utilized. The standard false-negative rate of mammography is between 10% and 25%. Complex patterns or increased breast density will markedly elevate the false-negative rate of mammography. A letter, in lay terminology, with the results of this exam will be mailed to the patient. This report was finalized on 07/21/2024 3:[address] Neir Alfaro MD. Narrative 07/21/2024 3:20 PM EDT DIGITAL SCREENING MAMMOGRAM WITH TOMOSYNTHESIS HISTORY: Screening Mammography. Low dose full field digital breast tomosynthesis imaging was performed with 2D and 3D acquisitions consisting of bilateral CC and MLO views. Examination is compared to prior examination dating back to 03/14/2015. Examination is read in conjunction with computer aided detection. FINDINGS: The breast tissue is heterogeneously dense, which may obscure small masses. No suspicious masses, microcalcifications or areas of architectural distortion are identified. Oval masses are noted bilaterally are stable, most consistent with waxing and waning cysts. us Silverio Sprague MD IMG MAMMOGRAPHY ORDERABLES Florencia sanches Result from Last 3 Months or Most Recently Relevant to Health Maintenance Insurance [facility] Medicare [employer] PPO Care Teams Thermite Bomb Loader Relationship Specialty Start Date End Date Silverio Sprague MD [address] [place] [address] PCP - General Family Medicine 03/04/16
== END 2025-04-27 23:59 | disposition home or self-care (01) ==
LOC: LAB 11:50
PROVIDERS: PCP Family Medicine; Visit Provider Obstetrics & Gynecology
DX: Z78.0 Asymptomatic menopausal state (principal); R10.2 Pelvic and perineal pain; R11.0 Nausea; R63.0 Anorexia; R14.0 Abdominal distension (gaseous)
CPT/HCPCS: 36415; 86304

== ENCOUNTER 2025-05-09 11:11 | Outpatient (CLI) | payer MEDICARE, SELFPAY ==
--- NOTE | 2025-05-09 11:13 | XR_ITS ---
FINAL REPORT CLINICAL HISTORY: f/u ABDOMINAL ANEURYSM COMPARISON: 02/08/2025 FINDINGS: A PA view of the chest was obtained. The cardiac and mediastinal silhouettes are within normal limits. A moderate-sized hiatal hernia is present. The lungs are clear. There is no free air beneath the diaphragm. Upright and supine views of the abdomen reveal a normal bowel gas pattern. There is no evidence of small bowel obstruction. There are no pathologic calcifications. No acute osseous abnormalities identified. IMPRESSION: No acute intrathoracic or intraabdominal abnormality. Reviewed, Interpreted and Dictated by Soren Avalos MD Transcribed by Chely Guardado Authenticated and [facility]
--- OUTSIDE RECORDS SUMMARY | 2025-05-09 11:13 | XMS_ITS | Clinical Summary ---
Author Organization [facility] Address [address] [place] [address] Care Team Providers Care Bench Molder Name Role Phone Silverio Sprague MD Primary Care Provider [phone] Allergies Active Allergy Reactions Criticality Noted Date [...] finalized on 07/21/2024 3:[address] Neri Alfaro MD. Narrative 07/21/2024 3:20 PM EDT [...] Most Recently Relevant to Health Maintenance Insurance [facility] [employer] PPO Care Teams Bench Molder Relationship Specialty Start Date End Date Silverio Sprague MD [address] [place] [address] PCP - General Family Medicine 03/04/16
--- OUTSIDE RECORDS SUMMARY | 2025-05-09 11:13 | XMS_ITS ---
Laboratory report Created on: May 02, 2025 JESSICA STEWART : 1945 Sex: Female Author Organization Unknown PROBLEMS Problems List Code Description RESULTS Laboratory Orders Date Order Code Test 2025-04-27 [id number] CANCER ANTIGEN ( [place]) 125 Laboratory Results Date LOINC Test Value Unit Reference Range Interpre tation 2025-04-27 [id number] CANCER ANTIGEN (CA) 125 12.7 U/ML 0.0-3 8.1
== END 2025-05-09 23:59 | disposition home or self-care (01) ==
LOC: RAD 11:11
PROVIDERS: PCP Family Medicine; Visit Provider Family Medicine
DX: I71.40 Abdominal aortic aneurysm, without rupture, unspecified (principal)
CPT/HCPCS: 74021

== ENCOUNTER 2025-08-30 10:24 | Outpatient (CLI) | payer MEDICARE, SELFPAY ==
[2025-08-30 10:37] VITALS: BP 122/55; PULSE 81; RESP 18; TEMP 36.6; O2SAT 97
[2025-08-30] MEDS: DENOSUMAB 60 MG/ML SYRINGE SUBCUT (10:37)
== END 2025-08-30 23:59 | disposition home or self-care (01) ==
LOC: INF 10:24
PROVIDERS: PCP Family Medicine; Visit Provider Family Medicine
DX: M19.90 Unspecified osteoarthritis, unspecified site (principal)
CPT/HCPCS: 96372; J0897